=== PATIENT | male | born 1980 | race Hispanic/Latino ===

== ENCOUNTER 2021-04-11 15:55 | Emergency (ER) | payer SELFPAY ==
[~2021-04-11] VITALS: Ht 167.6 cm; Wt 99.8 kg
[2021-04-11] MEDS ORDERED: LOPERAMIDE HCL 2 MG CAP PO ONE (16:30)
[2021-04-11] MEDS ORDERED: HYDROCODONE/ACETAMINOPHEN 5/325 MG TAB PO ONE (16:30)
[2021-04-11 16:47] LABS: CREATININE 0.8 mg/dL (0.5-1.5); POTASSIUM 3.4 mmol/L (3.5-5.1)
[2021-04-11 16:54] LABS: ALBUMIN 3.5 g/dL (3.5-5.0); BILIRUBIN,TOTAL 0.6 mg/dL (0.2-1.0); TOTAL PROTEIN, SERUM 7.7 g/dL (6.0-8.3)
[2021-04-11 16:55] LABS: BASOPHILS % (AUTO) 0.7 % (0.0-5.0); HEMATOCRIT 45.4 % (42-54); LYMPHOCYTES % (AUTO) 35.8 % (21.0-51.0); MEAN CORPUSCULAR HEMOGLOBIN 31.7 pg (27.0-33.0); MEAN CORPUSCULAR HGB CONC 34.8 g/dL (32.0-36.0); MONOCYTES % (AUTO) 11.2 % (3.0-13.0); NEUTROPHILS % (AUTO) 47.9 % (40.0-77.0); PLATELET COUNT (AUTO) 263 K/uL (130-400); RED BLOOD CELL COUNT(AUTO) 4.99 MIL/uL (4.50-6.20); RED CELL DISTRIBUTION WIDTH 12.5 % (11.0-15.5); WHITE BLOOD COUNT (AUTO) 8.1 K/uL (4.8-10.8)
[2021-04-11 17:11] VITALS: BP 121/76
[2021-04-11] MEDS ORDERED: LOPE2TAB26 PO (17:27)
[2021-04-11] MEDS ORDERED: CIPR-278 PO (17:27)
[2021-04-11] MEDS ORDERED: CIPROFLOXACIN HCL 500 MG TABLET PO SCH (17:30)
== END 2021-04-11 18:57 | disposition home or self-care (01) ==
LOC: EDH 15:55
DX: A09 Infectious gastroenteritis and colitis, unspecified (principal); E11.9 Type 2 diabetes mellitus without complications
CPT/HCPCS: 36415; 80053; 85025

== ENCOUNTER 2023-01-28 12:15 | Emergency (ER) | payer OTHER ==
[~2023-01-28] VITALS: Ht 167.6 cm; Wt 89.4 kg
[~2023-01-28 12:15] MED LIST: CIPR-278 PO; LOPE2TAB26 PO
[2023-01-28 12:31] VITALS: BP 163/99; PULSE 96; RESP 16
[2023-01-28] MEDS ORDERED: CEPH500B PO (12:57)
[2023-01-28] MEDS ORDERED: TETANUS/DIPHTHERIA TOXOID [ADULT] 0.5 ML VIAL IM ONE (13:00)
== END 2023-01-28 14:35 | disposition home or self-care (01) ==
LOC: EDH 12:15
DX: S61.313A Laceration without foreign body of left middle finger with damage to nail, initial encounter (principal); E11.9 Type 2 diabetes mellitus without complications; Z79.899 Other long term (current) drug therapy; Z98.890 Other specified postprocedural states; W26.0XXA Contact with knife, initial encounter; Y93.89 Activity, other specified; Y92.090 Kitchen in other non-institutional residence as the place of occurrence of the external cause; Y99.8 Other external cause status
CPT/HCPCS: 12001; 73140; 90471; 90714